=== PATIENT | male | born 1995 | race Caucasian/White ===

== ENCOUNTER 2020-09-02 07:10 | Outpatient (CLI) | payer OTHER ==
--- NOTE | 2020-09-02 08:34 | MRI Report ---
PROCEDURE: Lumbar Spine W/O INDICATIONS: RADICULOPATHY TECHNIQUE: Noncontrast sagittal T1 spin echo and T2 fast echo, sagittal STIR, axial T1 and T2 fast spin echo thr ough the lumbar spine. In cases with scoliosis, additional coronal T2 fast spin echo may be performe d. COMPARISON: None. FINDINGS: Image quality: Excellent. Alignment and Curvature: There is normal bony alignment. Bone Marrow: Marrow is of normal overall signal. No acute vertebral body compression fractures. Spinal Cord: Conus medullaris terminates at the T12-L1 level. Visualized cord demonstrates normal s ignal and size. Paraspinous Soft Tissues: No paravertebral masses. T12-L1: No canal stenosis or foraminal stenosis. L1-L2: No canal stenosis or foraminal stenosis. L2-L3: No canal stenosis or foraminal stenosis. L3-L4: No canal stenosis or foraminal stenosis. L4-L5: Posterior annulus tear plus minimal disc bulge. Facet and ligament hypertrophy. Short pedicl es. Moderate canal stenosis. L5-S1: There is a focal moderately large right paracentral disc protrusion measuring approximately 1.3 x 1.1 x 0.8 cm. It obliterates the right S1 nerve root in the right lateral recess. There is a sm aller left paracentral disc protrusion which mildly posteriorly displaces the left S1 nerve root in t he left lateral recess. There is mild right foraminal narrowing and sifp-eb-shipkupa left foraminal n arrowing. IMPRESSION: 1. The most significant findings are at L5-S1. A focal moderately large right paracentral disc protru reilly obliterates the right S1 nerve root in the right lateral recess. There is also a smaller left pa racentral disc protrusion which posteriorly displaces the left S1 nerve root in the left lateral rece ss. 2. At L4-L5, there is posterior annulus tear plus minimal disc bulge. 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 Reviewed by: Maikel Freeman MD on 09/02/2020 8:33 AM PST Approved by: Maikel Freeman MD on 09/02/2020 8:33 AM PST Station ID: [id number]
== END 2020-09-02 07:11 | disposition home or self-care (01) ==
LOC: DI 07:10
PROVIDERS: ATTEND Family Medicine
DX: M51.17 Intervertebral disc disorders with radiculopathy, lumbosacral region (principal)
CPT/HCPCS: 72148

== ENCOUNTER 2021-03-10 10:52 | Outpatient (CLI) | payer OTHER | END 2021-03-10 10:53 | disposition EMS.NT | LOC: EMS 10:52 | DX: M54.6 Pain in thoracic spine (principal) ==

== ENCOUNTER 2021-03-10 11:50 | Emergency (ER) | payer OTHER ==
[2021-03-10] MEDS ORDERED: HYDROmorphone 1 MG/ML CARPUJECT IM STA ×2 (12:41→13:37)
[2021-03-10] MEDS ORDERED: KETOROLAC 60 MG/2 ML VIAL IM STA (12:41)
--- NOTE | 2021-03-10 12:45 | ED Physician Documentation ---
History of Present Illness - Stated complaint Stated Complaint: BACK PX - Chief complaint Chief Complaint: Back Pain - Additonal information Additional information: 25-year-old male comes to the emergency department for evaluation of acute left midthoracic back pain that occurred just prior to arrival. He was helping his daughter get dressed and was shaking her sure to invert the arms when he felt a sudden pop in his abdomen and back. He stated it felt like a balloon was blowing up in his belly and the pain is persisted now in his thoracic area. It is constant worse with movement. He has no lower back pain, saddle anesthesia loss of sensation motor weakness or loss of bowel or bladder coordination. He does have a history of L4-L5 microdiscectomy in October 2020. Review of Systems Constitutional: denies: Fever, Chills Eyes: reports: Reviewed and negative Ears: reports: Reviewed and negative Throat: reports: Reviewed and negative Cardiac: reports: Reviewed and negative Respiratory: reports: Reviewed and negative GI: reports: Abdominal Pain. denies: Nausea, Vomiting : reports: Reviewed and negative Skin: reports: Reviewed and negative Musculoskeletal: reports: Back pain Neurologic: denies: Generalized weakness, Focal weakness, Numbness, Difficulty speaking, Confused, Altered mental status, LOC Psychiatric: reports: Reviewed and negative Endocrine: reports: Reviewed and negative PD PAST MEDICAL HISTORY - Present Medications Home Medications: Ambulatory Orders Medication Instructions Recorded Confirmed HYDROcod/ACETAM 5/325 [[place] 5/325] 1 - 2 tablet PO Q6H PRN #10 tablet 03/10/21 Ibuprofen [Motrin] 600 mg PO Q6H PRN #30 tab 03/10/21 methocarbamoL [Methocarbamol] 750 mg PO TID PRN #20 tablet 03/10/21 - Allergies Allergies/Adverse Reactions: Allergies Allergy/AdvReac Type Severity Reaction Status Date / Time No Known Drug Allergies Allergy Verified 03/10/21 11:54 - Social History Does the pt smoke?: No Smoking Status: Never smoker PD ED PE EXPANDED - General General: Alert, In Pain, In distress - Cardiac Cardiac: Regular Rate, Radial strong equal, Pedal strong equal, Cap refill < 2 sec - Respiratory Respiratory: Clear to ausultation tara. No: Distress, Labored - Abdomen Abdomen: Normal Bowel sounds, Tender to palpation, Epigastric (mild epigastric tenderness withotu guarding or rebound). No: Rebound, Guarding - Back Back: Soft tissue tenderness (left lateral thoracic sub scapular. No midline vertebral tenderness. no swelling ecchymosis). No: Vertebral tenderness, Straight leg raise + R, Straight leg raise + L, CVA TTP right, CVA TTP left - Derm Derm: Normal color, Rash - Extremities Extremities: Deformity, Right calf TTP/cord, Left calf TTP/cord - Neuro Neuro: Alert and Oriented X 3, CNII-XII intact - GCS Eye Opening: Spontaneous Motor: Obeys Commands Verbal: Oriented Total: 15 Results - Vitals Vitals: Vital Signs - 24 hr 03/10/21 11:55 Temperature 37.2 C Heart Rate 80 Respiratory 18 Rate Blood Pressure 147/80 H O2 Saturation 99 Oxygen O2 Source Room air - EKG (time done) 1153 Rate: Rate (enter#) (76) Rhythm: NSR [place]: Normal Intervals: Normal CO. No: Prolonged QT QRS: Normal Ischemia: ST elevation c/w repol Compare to prior EKG: Old EKG unavailable Computer interpretation: Agree with computer - Labs Labs: Laboratory Tests 03/10/21 03/10/21 03/10/21 12:58 12:58 12:58 WBC 6.1 RBC 6.00 Hgb 17.0 Hct 50.2 MCV 83.7 MCH 28.3 MCHC 33.9 RDW 12.8 Plt Count 172 MPV 9.9 Neut # (Auto) 4.3 Lymph # (Auto) 1.0 L Mathews # (Auto) 0.6 Eos # (Auto) 0.2 Baso # (Auto) 0.0 Absolute Nucleated RBC 0.00 Nucleated RBC % 0.0 D-Dimer 210.2 Sodium 138 Potassium 3.8 Chloride 100 L Carbon Dioxide 29 Anion Gap 9.0 BUN 15 Creatinine 0.9 Estimated GFR (MDRD) 101 Glucose 95 Calcium 10.0 - Rads (name of study) 2V CXR Radiology: Final report received (Normal for age.) PD MEDICAL DECISION MAKING - ED course Complexity details: reviewed results, re-evaluated patient, considered differential, d/w patient, d/w family ED course: 25-year-old male presents emergency department for evaluation of acute left lateral thoracic back pain that began suddenly when he was shaking out a short at home to write the long sleeves. He felt a pop and has had persistent pain since. He also endorsed feeling short of air. The pain is very focal just subscapular. Is worse with movement. Two-view chest x-ray did not reveal findings of pneumothorax pneumonia or vertebral body compression. His mother who is at the bedside was concerned that this could be a pulmonary embolus as there is a family history of it. Patient was not hypoxic or tachypneic. Cardiopulmonary auscultation was unremarkable. However high-sensitivity D-dimer was also negative therefore CT angio was deferred. This gentleman was given Dilaudid as well as Toradol in the emergency department with some mild relief of pain. I did repeat the Dilaudid dose with some moderate improvement. The etiology of his pain is not clear. I will prescribe ibuprofen as well as a muscle relaxer. A very limited amount of hydrocodone will also be prescribed. I am prescribing a short course of short-acting opioid pain medication for this patient. I have reviewed the patients [employer] and no concerning findings were noted. I have discussed that the opioids are for short term therapy only, and will not be refilled from the ED. Departure - Departure Disposition: 01 Home, Self Care Clinical Impression: Acute thoracic back pain Qualifiers: Back pain laterality: left Qualified Code(s): M54.6 - Pain in thoracic spine Condition: Stable Record reviewed to determine appropriate education?: Yes Instructions: ED Acute Pain [facility] Prescriptions: methocarbamoL [Methocarbamol] 750 mg PO TID PRN #20 tablet PRN Reason: Spasms Ibuprofen [Motrin] 600 mg PO Q6H PRN #30 tab PRN Reason: Pain HYDROcod/ACETAM 5/325 [[place] 5/325] 1 - 2 tablet PO Q6H PRN #10 tablet PRN Reason: Pain Comments: Jitendra as we discussed the cause of your left sided thoracic back pain is not clear at this time. I suspect you may have tweaked or pulled a muscle when shaking out the sure. It is important you [facility] to [facility]. I have prescribed ibuprofen as well as a muscle relaxer to help with pain. You may find some relief by using ice or heat, whichever feels better. Gentle stretching can also be effective. I have prescribed a limited amount of hydrocodone to be used for severe pain only. I am prescribing a short course of narcotic pain medication for you. These are potentially dangerous and addictive medications that should be used carefully. These medications may constipate you. Take an nslp-cqn-hbqeucb stool softener (docusate) twice daily with plenty of water while taking these medications. If you go 24 hours without a bowel movement, take xznc-saz-zcapzww miralax, per package instructions. Do not drink or drive while taking these medications. If you received narcotic or sedating medications while in the emergency department, do not drive for 24 hours. Store this medication in a safe, secure place and out of reach of children. It is a violation of federal law to give or sell this medication to another person or to use in a manner other than prescribed. The ED will not refill narcotic prescriptions, including prescriptions lost or stolen. To dispose of unwanted medications: 1. [facility] [address] in [place] has a medication drop box. They accept prescription medications (in pill form) Monday through Monday 9:00 a.m. to 5:00 p.m. 2. The [employer] [facility] [employer] accepts prescription medications (in pill form only) for disposal year round. Call for more information. 3. Contact the [facility] for the next [facility] sponsored prescription drug collection event. , [phone], or [phone]; Note that many narcotic pain relievers also contain Tylenol/acetaminophen. Please ensure that your total dose of acetaminophen from all sources does not exceed 3 g (3000 mg) per day. Return to the emergency department if you develop fevers, worsening back pain, cannot breathe adequately, or have chest pain and uncontrolled vomiting.
--- NOTE | 2021-03-10 13:02 | XRAY Report ---
PROCEDURE: Chest 2 View X-Ray INDICATIONS: cough TECHNIQUE: 2 view(s) of the chest. COMPARISON: None. FINDINGS: Surgical changes and devices: None. Lungs and pleura: No pleural effusions or pneumothorax. Lungs are clear. Mediastinum: Mediastinal contours are normal. Heart size is normal. Bones and chest wall: No suspicious bony abnormalities. Soft tissues appear unremarkable. IMPRESSION: Normal for age, source of current symptoms is not seen. Reviewed by: Andrew Brady MD on 03/10/2021 12:00 PM [facility] Approved by: Andrew Brady MD on 03/10/2021 12:00 PM [facility] Station ID: [id number]
[2021-03-10 13:06] LABS: BASOPHILS % (AUTO) 0.7 %; EOSINOPHILS # (AUTO) 0.2 10^3/uL (0.0-0.7); EOSINOPHILS % (AUTO) 2.5 %; HCT - HEMATOCRIT 50.2 % (42.0-52.0); MEAN CORPUSCULAR HEMOGLOBIN 28.3 pg (27.0-31.0); MEAN CORPUSCULAR HGB CONC 33.9 g/dL (32.0-36.0); MEAN CORPUSCULAR VOLUME 83.7 fL (80.0-94.0); MEAN PLATELET VOLUME 9.9 fL (7.4-11.4); MONOCYTES # (AUTO) 0.6 10^3/uL (0.0-1.0); MONOCYTES % (AUTO) 10.3 %; NEUTROPHILS # (AUTO) 4.3 10^3/uL (1.5-6.6); NEUTROPHILS % (AUTO) 70.3 %; PLT - PLATELET COUNT 172 10^3/uL (130-450); RED CELL DISTRIBUTION WIDTH 12.8 % (12.0-15.0); WHITE BLOOD COUNT 6.1 x10^3/uL (4.8-10.8)
[2021-03-10 13:14] LABS: CREATININE 0.9 mg/dL (0.6-1.2); POTASSIUM 3.8 mmol/L (3.5-5.0)
[2021-03-10 14:07] VITALS: BP 136/91
== END 2021-03-10 14:08 | disposition home or self-care (01) ==
LOC: ED 11:50
DX: M54.6 Pain in thoracic spine (principal)
CPT/HCPCS: 36415; 71046; 80048; 85025; 85379; 93005; 96372; 99284; J1170

== ENCOUNTER 2023-05-22 13:12 | Outpatient (CLI) | payer OTHER ==
--- NOTE | 2023-05-22 21:37 | SLEEP CARE CONSULTATION ---
Information from patient questionnaire entered by Gabriela Mesa. I have reviewed and concur with the information entered by Gabriela Mesa. This document represents the service I personally performed and the decisions made by me, Carson Hernandez MD, [facility]. History of Present Illness Service Date and Time: 05/22/2023 1312 Reason for Visit: New patient Chief Complaint: reports: Insomnia, Unrefreshed sleep, Snoring, Excessive daytime sleepiness, Observed pauses in breathing, Fatigue, Frequent awakenings at night Date of Onset: 3YRS Usual bedtime: 8-830PM Time it takes to fall asleep: 1-2HRS Snores at night: Yes Observed to quit breathing while asleep: Yes Sleeps alone due to snoring: No Number of times waking at night: 2-4 Reasons for waking at night: reports: Snoring, Other (UNKNOWN) Toss, Turn, or Twitch while sleeping: Yes Recalls having dreams: No Usually gets out of bed at: 0430 Feels refreshed in the morning: No Morning headache: Yes Sleepy or fatigued during the day: Yes Ever fallen asleep while driving: Yes Takes day naps: No Dreams during day naps: No Prior sleep studies: No Additional HPI information: I had the pleasure of seeing Mr. Trevino today regarding the possibility of him having a sleep disorder. As you know, he is a 27-year-old gentleman who complains of insomnia, frequent awakenings, unrefreshed sleep, loud snores, observed apneas, and excessive daytime sleepiness for the past 3 4 years. The patient tells me that he normally goes to bed around 8 8:30 pm, and it takes him approximately 1 2 hours to fall asleep. 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 He has been told that he snores loudly and irregularly at night. He has also never been observed to stop breathing in his sleep. His can still sleep in the same bed. He can recall waking up on the average of 2 - 4 times during the night. Most of the time he wakes up because of f his own snoring, choking, and having to gasp for air. There is a lot of tossing and turning in his sleep. He has somniloquy (sleep talking) but not somnambulism (sleep walking). Generally, there is no recollection of dreams. In the morning he usually gets up out of the bed around 4:30 a.m. (8 am on weekends) not feeling refreshed nor rested. He usually has a morning headache that goes away after showering. During the day he complains of feeling sleepy and fatigued. His score on [place] Sleepiness Scale is 8 out of 24. He has fallen asleep while driving and has gone out of the [place]ott. He takes Adderall 5 mg twice a day occasionally for ADD. He usually does not take naps during the day. Upon falling asleep during the day he denies having vivid dreams. He reports having impaired concentration during the day. - Parasomnia Symptoms Ever been unable to move upon waking from sleep: Yes Walks in sleep: No Talks in sleep: Yes Ever acted out dreams in sleep: No Ever felt weak in the knees when startled or emotional: No Bothered by creepy, crawly, restless sensations in legs: No Problems with memory or concentration: Yes Subjective Initial [place] Sleepiness Scale score: 8 (05/22/23) Past Medical History Past Medical History: reports: Attention deficit Social History The patient's occupation is a AM. Patient is and lives in . Have you smoked in the past 12 months: No Years of smokin Quit date: 2017 Alcohol use: Yes Alcohol amount and frequency: 1 RARLEY Caffeine use: No Family History Family history of sleep disordered breathing: Yes Family Hx Sleep Apnea: Father: Snoring, Sibling: Snoring, Grandparent: Sleep apnea - Treated Allergies and Home Medications Known drug allergies: No Drug allergies reviewed: Yes Home medication list reviewed: Yes Allergy and home medication list: Allergies No Known Drug Allergies Allergy (Verified 05/19/23 10:51) Review of Systems Cardiovascular: denies: high blood pressure, palpitations, chest pain, irregular heart rate or pulse, leg or foot swelling, have to sleep sitting up, other Respiratory: denies: shortness of breath, wheeze, sputum production, chronic cough, other Gastrointestinal: denies: heartburn, difficulty swallowing, nausea, vomitting, diarrhea, abdominal pain, other Urinary: denies: incontinence, frequency, urgency, impotence, other Neurological: reports: headaches Psychiatric: reports: Attention Deficit Hyperactivity Ear/Nose/Throat: reports: wisdom teeth removed Endocrine: denies: thyroid disease, history of goiter, sluggishness, too hot or cold, excessive thirst, increased appetite, increased urination, unexplained weakness, other Musculoskeletal: reports: back pain Immunologic: denies: sneezing, rash, itching, allergies to food or environment, other Physical Exam Vital signs obtained and entered by: GABRIELA Sanabria MA Blood Pressure: 114/70 (LEFT ARM) Cuff size: regular Heart Rate: 64 O2 Saturation: 99 Height: 6 ft Weight: 228 lb 6.4 oz Body Mass Index: 30.9 BMI Classification: Obese Neck circumference: 15.75 Mood/affect: Normal HEENT: No craniofacial malformation Nostrils: patent to airflow Turbinates: normal Septum: deviated right Mouth and throat: narrow oropharynx Soft palate: long Hard palate: normal Uvula: normal Uvula visualization: 50% Mallampati Class II Tongue: normal in size Tonsils: small Chin and jaw: normal size and position Neck: normal w/o lymphadenopathy or thyromegaly Heart: regular rate and rhythm Lungs: clear bilaterally Extremities: no edema or clubbing Neurologic: intact Impression and Plan IMPRESSION: 1. Obstructive Sleep Apnea-Hypopnea Syndrome, as suggested by history of loud and irregular snoring, observed cessation of breath while asleep, frequent awakenings during the night, unrefreshed sleep, cognitive impairment, and daytime hypersomnolence. Narrow oropharynx is a common predisposing factor for obstructive sleep apnea-hypopnea syndrome. I recommend proceeding to polysomnography to confirm the diagnosis and to assess severity. If he has significant sleep disordered breathing, a manual CPAP titration study will also be performed to find the optimal treatment pressure. I informed the patient of what the sleep studies involve and after some discussion, he agreed to proceed. 2. Circadian rhythm disorder cause insomnia during weeknights and insufficient sleep. The patient goes to bed 7 hours and wakes up 4 hours later on weekends. This also contributes to excessive daytime sleepiness. Unless he changes his weekend work schedule, his insomnia and excessive daytime sleepiness will probably will not improve. Plan: 1. Schedule polysomnography + manual CPAP titration study and return in 1 to 2 weeks after the study to discuss result and initiate therapy. 2. Avoid long distance driving or when feeling sleepy. 3. Avoid alcohol, sedative and muscle relaxant around bedtime. Follow up with Sleep Care in: 1-2 months Plan: in-lab PSG Visit Type: In Office Time Spent with Patient (minutes): 15 Provider Statement: I spent 100% of the Face to Face Visit with the patient with greater than 50% spent counseling the patient and coordination of care.
[2023-05-22 21:46] VITALS: BP 114/70; O2SAT 99
== END 2023-05-22 13:13 | disposition home or self-care (01) ==
LOC: SC 13:12
PROVIDERS: ATTEND Internal Medicine Pulmonary Disease
DX: R06.83 Snoring (principal); G47.8 Other sleep disorders; R06.81 Apnea, not elsewhere classified; G47.10 Hypersomnia, unspecified; E66.3 Overweight; Z68.30 Body mass index [BMI] 30.0-30.9, adult
CPT/HCPCS: 99202; 99212

== ENCOUNTER 2023-07-20 16:13 | Outpatient (CLI) | payer OTHER ==
--- NOTE | 2023-07-20 15:07 | SLEEP CARE CONSULTATION ---
Information from patient questionnaire entered by Gabriela Mesa. I have reviewed and concur with the information entered by Gabriela Mesa. This document represents the service I personally performed and the decisions made by , Dottie Tao ARNP. History of Present Illness Service Date and Time: 07/20/2023 1500 Initial [place] Sleepiness Scale score: 8 (05/22/23) Current [place] Sleepiness Scale score: 3 (07/20/23) Additional HPI information: GILBERTO HAND returns via video telehealth visit for follow up and results of the recently performed polysomnography. The patient was informed of the following findings: No significant sleep disordered breathing with an average AHI of 0 and osman oxygen saturation of 92%. I explained the pathophysiology behind obstructive sleep apnea. Patient does not have sleep apnea and was advised how weight gain could increase the risk of developing sleep apnea in the future. I strongly encouraged the patient to lose weight. Patient has mild snoring. Snoring can be reduced by weight loss. Weight loss is best achieved with diet consult. Patient instructed to contact PCP for referral. Snoring can also be treated with an oral appliance from a dentist. Advised to check insurance coverage. In addition, an ENT evaluation can be do to see if other treatment is indicated. Patient does not drink alcohol. Patient was cautioned about risks of drowsy driving until sleepiness symptoms resolve. Arturo byrne denies drowsy driving. Sleep Study - Results Type of Sleep Study: Polysomnography (COMPLETED 06/25/23) Prior sleep studies: No Polysomnography/Home Sleep Study results: IMPRESSION: The quality of the study is good. The patient had normal sleep efficiency. The sleep architecture was abnormal for sleep fragmentation and reduced amount of time spent in slow wave sleep (N3). Respiratory monitoring showed no significant sleep disordered breathing (AHI = 0.0) or hypoxia (osman oxygen saturation of 92%). The patient slept adequately in supine position (supine AHI = 0.0; non- supine = 0.00). Snore was infrequent and light in intensity. There was no significant periodic leg movement of sleep. Cardiac rhythm was normal sinus rhythm without significant arrhythmia. No abnormal behavior (parasomnia) observed during the night. Allergies and Home Medications Known drug allergies: No Drug allergies reviewed: Yes Home medication list reviewed: Yes (no changes) Allergy and home medication list: Allergies No Known Drug Allergies Allergy (Verified 07/19/23 09:50) Review of Systems Review of systems same as previous: Yes (NO CHNAGE ) Physical Exam Vital signs obtained and entered by: GABRIELA Sanabria MA Height: 6 ft (PER PT ) Weight: 220 lb (PER PT) Body Mass Index: 29.8 BMI Classification: Overweight Impression and Plan 1. Snoring but no significant sleep disordered breathing. Patient advised that often weight loss will reduce snoring as well as apnea risk. An oral appliance can also be used for snoring and bruxism. This would require a dental consultation. Patient cautioned not to use other online appliances as can cause bite issues. Patient is advised to check if insurance will cover. An ENT consult can also be helpful to determine if any other treatment is an option. 2. Circadian rhythm disorder. To improve excessive daytime sleepiness and insomnia the recommendation was for patient to change his weekend work schedule which causes him to sleep in later on the weekends. He voiced understanding. 2. Overweight, unspecified. Currently patients BMI is 29.8. Obesity increases the risk of apnea, CPAP pressure requirements and overall health risks especially cardiovascular and diabetes. Thus patient is advised to lose weight. * Followup with PCM for referral for oral snoring appliance to control snoring and bruxism * Attempt to lose weight * Return as needed for follow up. Counseling Topics: Weight loss health impact Follow up with: PCP (for referral for dental appliance for snoring) Visit Type: Telehealth Video Video Type: Doximity Patient Location: Home Location of Provider: Office Patient agrees and consents to this telehealth visit type: Yes Patient agrees to have their insurance billed: Yes Time Spent with Patient (minutes): 12 Provider Statement: I spent 100% of the Telehealth Video Call with the patient with greater than 50% spent counseling the patient and coordination of care.
== END 2023-07-20 16:14 | disposition home or self-care (01) ==
LOC: SC 16:13
PROVIDERS: ATTEND Nurse Practitioner Family
DX: R06.83 Snoring (principal); G47.20 Circadian rhythm sleep disorder, unspecified type; E66.3 Overweight; Z68.29 Body mass index [BMI] 29.0-29.9, adult

== ENCOUNTER 2023-09-01 08:09 | Emergency (ER) | payer OTHER ==
[2023-09-01 08:27] VITALS: BP 144/80; O2SAT 100
--- NOTE | 2023-09-01 08:46 | XRAY Report ---
PROCEDURE: Wrist 4 View RT INDICATIONS: Trauma TECHNIQUE: 3 views of the wrist were acquired. COMPARISON: None. FINDINGS: Bones: No fractures or dislocations. No suspicious bony lesions. Soft tissues: No suspicious soft tissue calcifications or masses. IMPRESSION: No acute bony abnormality. Reviewed by: Maikel Freeman MD on 09/01/2023 8:45 AM [facility] Approved by: Maikel Freeman MD on 09/01/2023 8:45 AM [facility] Station ID: [id number]
--- NOTE | 2023-09-01 08:46 | XRAY Report ---
PROCEDURE: Hand 3 View RT INDICATIONS: Trauma TECHNIQUE: 3views of the hand(s) acquired. COMPARISON: None. FINDINGS: Bones: No fractures or dislocations. No suspicious bony lesions. Soft tissues: No suspicious soft tissue calcifications or masses. IMPRESSION: No acute bony abnormality. Reviewed by: Maikel Freeman MD on 09/01/2023 8:45 AM PST Approved by: Maikel Freeman MD on 09/01/2023 8:45 AM [facility] Station ID: [id number]
--- NOTE | 2023-09-01 09:17 | ED Physician Documentation ---
PD HPI UPPER EXT INJURY - Stated complaint Stated Complaint: RT HAND PX/SWOLLEN - Chief complaint Chief Complaint: Trauma Ext - History of Present Illness Location: Right, Wrist, Hand Type of injury: Fall (onto outstretched hand) Timing - onset: Yesterday Timing - details: Abrupt onset, Still present Worsened by: Moving, Palpating Associated symptoms: Swelling. No: Weakness, Numbness Similar symptoms before: Has not had sx before Review of Systems Skin: denies: Abrasion (s), Laceration (s) Neurologic: denies: Focal weakness, Numbness PD PAST MEDICAL HISTORY - Past Medical History Past Medical History: No Psych: ADD/ADHD - Past Surgical History Past Surgical History: No - Present Medications Home Medications: Ambulatory Orders Medication Instructions Recorded Confirmed Ibuprofen [Motrin] 600 mg PO Q6H PRN #30 tab 03/10/21 09/01/23 Acetaminophen [Tylenol] 500 mg PO Q4-6H 09/01/23 09/01/23 - Allergies Allergies/Adverse Reactions: Allergies Allergy/AdvReac Type Severity Reaction Status Date / Time No Known Drug Allergies Allergy Verified 07/20/23 14:26 - Social History Does the pt smoke?: No Smoking Status: Never smoker PD ED PE NORMAL - Vitals Vital signs reviewed: Yes - General General: Alert and oriented X 3, No acute distress, Well developed/nourished - Derm Derm: Normal color, Warm and dry - Extremities Extremities: Other (right wrist with tenderness dorsal aspect. Not tender snuffbox directly. Some tender at MCPs. Not tender in fingers. Thumb base without pain/tenderness. ) - Neuro Neuro: No motor deficit, No sensory deficit Results - Vitals Vitals: Oxygen O2 Source Room air - Rads (name of study) right hand and wrist Relevant Findings:: Prelim report reviewed, EMP independent interpretation of test (no fractures nor dislocations. ) PD Medical Decision Making - ED course Complexity details: reviewed results (fall to hand and wrist. Not tender in snuffbox, but dorsal wrist mainly. Xray without fractures. Can give velcro splint and limited use duty note. ), considered differential, d/w patient Departure - Departure Disposition: 01 Home, Self Care Clinical Impression: Accidental fall, Right wrist sprain Condition: Stable Record reviewed to determine appropriate education?: Yes Instructions: ED Sprain Wrist Follow-Up: JACK VARELA MD [Primary Care Provider] - Comments: No fracture seen on x-ray. Obviously still injured and you can use a wrist splint during activities and to support the wrist. This can take off and even a week or so for improvement. Later use during that time. Consider anti- inflammatory such as ibuprofen 600 mg 3 times daily for the next several days to week. Follow-up if not improved/resolved over the next 1 to 2 weeks. Forms: PCP List, Activity restrictions Discharge Date/Time: 09/01/23 10:48
== END 2023-09-01 10:48 | disposition home or self-care (01) ==
LOC: ED 08:09
DX: S63.501A Unspecified sprain of right wrist, initial encounter (principal); W18.30XA Fall on same level, unspecified, initial encounter
CPT/HCPCS: 99283

== ENCOUNTER 2023-09-04 09:00 | Day surgery (SDC) | payer OTHER ==
[2023-09-04] MEDS ORDERED: LACTATED RINGERS 1,000 ML IV ONE ×2 (09:24→11:40)
--- NOTE | 2023-09-04 10:47 | ANESTHESIA ---
Pre-Anesthesia VS, & Labs - Diagnosis elective sterilization - Procedure vasectomy Vital Signs: Temp Pulse Resp BP Pulse Ox O2 Flow Rate 36.2 C L 92 14 142/88 H 100 09/04/23 09:20 09/04/23 09:20 09/04/23 09:20 09/04/23 09:20 09/04/23 09:20 Height: 6 ft Weight (kg): 105 kg Body Mass Index: 31.4 BMI Classification: Obese - NPO >8 hours Home Medications and Allergies Home Medications: Ambulatory Orders Acetaminophen [Tylenol] 500 mg PO Q4-6H 09/01/23 Acetaminophen [Tylenol] 500 mg PO Q4-6H 09/01/23 Allergies/Adverse Reactions: Allergies Allergy/AdvReac Type Severity Reaction Status Date / Time No Known Drug Allergies Allergy Verified 07/20/23 14:26 Anes History & Medical History - Anesthetic History Anesthesia Complications: reports: No previous complications - Medical History Cardiovascular: reports: None Pulmonary: reports: None Gastrointestinal: reports: None Urinary: reports: None Musculoskeletal: reports: Other Endocrine/Autoimmune: reports: None Skin: reports: None Smoking Status: Never smoker History of Cancer?: No - Surgical History General: reports: Appendectomy Exam General: Alert, Oriented x3 Dental: WNL Mouth Opening: Greater than 4 Fingerbreadths Neck Mobility: Normal Mallampati classification: II Thyromental Distance: greater than 6 cm Respiratory: Lungs clear Cardiovascular: Regular rate Plan Anesthesia Type: MAC, Total IV Consent for Procedure(s) Verified and Reviewed: Yes Code Status: Attempt Resuscitation ASA classification: 1-Healthy patient Is this case an emergency?: No
[2023-09-04] MEDS ORDERED: LIDOCAINE-MPF 1% 30 ML VIAL ONE (10:57)
[2023-09-04] MEDS ORDERED: BACITRACIN ZINC OINT 1 PACKET TOP ONE (10:58)
[2023-09-04] MEDS ORDERED: MIDAZOLAM 2 MG/2 ML VIAL ONE (11:13)
[2023-09-04] MEDS ORDERED: PROPOFOL 200 MG/20 ML VIAL IVP ONE (11:14)
[2023-09-04] MEDS ORDERED: LIDOCAINE 1% 50 ML MDV SUBQ ONE ×2 (11:22)
[2023-09-04] MEDS ORDERED: PROPOFOL 500 MG/50 ML 500 MG/50 ML VIAL ONE (11:23)
[2023-09-04] MEDS ORDERED: HYDROcod/ACETAM 5/325 MG TABLET PO PRN (11:35)
--- NOTE | 2023-09-04 11:38 | Discharge Plan ---
Discharge Plan Problem Reviewed?: Yes Disposition: 01 Home, Self Care Diet: Regular Activity Restrictions: Additional Comments (Minimal activity for 48 hours. Can slowly increase activity over the following week, but no exercise or significant activity or sexual activity for 1 week You must use a secondary contraceptive for the next 3 months until you have a confirmatory semen analysis to confirm no sperm present in yo) Shower Restrictions: No Driving Restrictions: No Instruction Topics: Vasectomy No Scalpel No Smoking: If you smoke, Please STOP! Call for help.
--- NOTE | 2023-09-04 11:42 | OPERATIVE REPORT ---
Operative Report - General Procedure Date: 09/04/23 Planned Procedure: Bilateral Vasectomy Pre-Op Diagnosis: Elective Sterilization Procedure Performed: Bilateral Vasectomy Post Op Diagnosis: Elective Sterilization - Procedure Note Primary Surgeon: Lee Anesthesia Provider: TEMO Anesthesia Technique: Moderate sedation Estimated Blood Loss (mL): 2 Indications: Elective Sterilization Findings: Normal Vasectomy Complications: mild venous bleeding noted to left distal vasal stump, oversewn with chromic suture - Other Other Information/Narrative: After informed consent was obtained the patient was brought to the OR and laid in the supine position. The patient was anesthetized per anesthesia protocols and prepped draped in usual sterile fashion. A formal timeout was performed reconfirming the patient, procedure and laterality. His right vas deferens was identified and a skin wheal with 1% lidocaine was used in the right hemiscrotum. This was then sharply dissected using a sharp mosquito until we could identify the vas deferens. This was then grasped with a ring clamp. The sheath was sharply dissected and the vas was identified and grasped up using an MD Insideron forcep. The vas was clamped on both ends and the intervening segment was cauterized away. These ends were suture- ligated with 3-0 chromic suture. There was excellent hemostasis. One end was dropped back into the cavity and a fascial interposition stitch was placed using 3-0 chromic. The skin was then closed using 3-0 chromic suture. An identical procedure was performed on the left side, however, after placing the suture ligating 3-0 chromic sutures we did notice some venous bleeding coming from the distal left vasal stump and so the stump was oversewn again with 3-0 chromic suture with excellent hemostasis. Band-Aids were placed over the entry sites. Patient tolerated the procedure well and was brought to the PACU without further incident. All counts were correct.
[2023-09-04 11:46] VITALS: O2SAT 99
--- NOTE | 2023-09-04 11:52 | ANESTHESIA POST OP EVALUATION ---
Anesthesia Post Eval - Post Anesthesia Eval Vitals: Last Vital Signs Temp 36.1 C L 09/04/23 11:40 Pulse 68 09/04/23 11:40 Resp 18 09/04/23 11:40 BP 125/73 09/04/23 11:40 Pulse Ox 99 09/04/23 11:40 O2 Flow Rate CV Function Including HR & BP: Stable Pain Control: Satisfactory Nausea & Vomiting: Negative Mental Status: Baseline Respiratory Status: Airway Patent Hydration Status: Satisfactory Anesthesia Complications: None
[2023-09-04 11:56] VITALS: BP 114/88
== END 2023-09-04 09:01 | disposition home or self-care (01) ==
LOC: SDS 09:00
PROVIDERS: ATTEND Urology
DX: Z30.2 Encounter for sterilization (principal); E66.9 Obesity, unspecified; Z68.31 Body mass index [BMI] 31.0-31.9, adult
CPT/HCPCS: 55250; A9270; J7120